=== PATIENT | female | born 1960 | race Caucasian/White ===

== ENCOUNTER 2017-10-17 06:28 | Inpatient (IN) | payer MEDICAID ==
[2017-10-17] MEDS ORDERED: Isosulfan Blue 5 ML SDV ONE (06:58)
[2017-10-17] MEDS ORDERED: Ondansetron 4 MG/2 ML SDV ONE (07:12)
[2017-10-17] MEDS ORDERED: Propofol 200 MG/20 ML SDV ONE (07:12)
[2017-10-17] MEDS ORDERED: Rocuronium 50 MG/5 ML Vial ONE (07:12)
[2017-10-17] MEDS ORDERED: Dexamethasone 4 MG/ML SDV ONE (07:12)
[2017-10-17] MEDS ORDERED: Neostigmine Methylsulfate 1 MG/ML 5 ML Syringe ONE (07:13)
[2017-10-17] MEDS ORDERED: Succinylcholine/Normal Saline 200 MG/10 ML Syringe ONE (07:13)
[2017-10-17] MEDS: Dextrose 5%-Lactated Ringers 1,000 ML IV SCH ×3 (07:21→21:59)
[2017-10-17] MEDS ORDERED: Naloxone 0.4 MG/ML SDV IVPUSH PRN ×2 (08:29→13:00)
[2017-10-17] MEDS ORDERED: HYDROmorphone/Normal Saline 15 MG/30 ML PCA IV PRN (08:29)
[2017-10-17] MEDS ORDERED: Isosulfan Blue 5 ML SDV SUBCUT ONE (08:29)
[2017-10-17] MEDS ORDERED: Ondansetron 4 MG/2 ML SDV IVPUSH PRN ×2 (10:28→11:32)
[2017-10-17] MEDS ORDERED: Docusate Sodium 100 MG Cap PO PRN (10:28)
[2017-10-17] MEDS ORDERED: Lactated Ringers 1,000 ML IV SCH ×2 (10:30→11:45)
--- NOTE | 2017-10-17 11:17 | NM ---
Lymphoscintigraphy. Findings: 1.47 mCi technetium was injected by Dr. Agudelo. Please refer to his procedural notes.
[2017-10-17] MEDS: Docusate Sodium 100 MG Cap PO PRN (20:13)
[2017-10-18] MEDS: Docusate Sodium 100 MG Cap PO PRN (08:57)
[2017-10-18] MEDS: Docusate Sodium 100 MG Cap PO SCH ×2 (08:58→20:01)
[2017-10-18] MEDS: Acetaminophen/HYDROcodone 325-5 MG Tab PO PRN ×3 (08:58→19:08)
[2017-10-18] MEDS ORDERED: Metoprolol Tartrate 25 MG Tab PO SCH (09:00)
--- NOTE | 2017-10-18 10:26 | PCM.SURGPN ---
- General Info Date of Service: 10/18/17 Date of Surgery/Procedure: 10/17/17 POD#: 1 Post-Op Diagnosis: Ductal carcinoma in situ, right breast Functional Status: Reports: Pain Controlled, Tolerating Diet, Ambulating, Urinating, Incentive Spirometry - Review of Systems General: Reports: No Symptoms HEENT: Reports: No Symptoms Pulmonary: Reports: No Symptoms Cardiovascular: Reports: No Symptoms Gastrointestinal: Reports: No Symptoms Genitourinary: Reports: No Symptoms Musculoskeletal: Reports: No Symptoms Skin: Reports: No Symptoms Neurological: Reports: No Symptoms Psychiatric: Reports: No Symptoms - Patient Data Vitals - Most Recent: Last Vital Signs Temp 97.1 F 10/18/17 07:11 Pulse 88 10/18/17 07:11 Resp 16 10/18/17 07:11 BP 101/53 L 10/18/17 07:11 Pulse Ox 95 10/18/17 07:30 Weight - Most Recent: 220 lb I&O - Last 24 Hours: Intake & Output 10/17/17 10/18/17 10/18/17 22:59 06:59 14:59 Intake Total 911 2073 240 Output Total 135 945 Balance 776 1128 240 Lab Results Last 24 Hrs: Laboratory Results - last 24 hr 10/18/17 10/18/17 Range/Units 05:45 05:45 WBC 11.5 H (4.5-11.0) K/uL RBC 4.19 (3.30-5.50) M/uL Hgb 10.9 L D (12.0-15.0) g/dL Hct 35.5 L (36.0-48.0) % MCV 85 (80-98) fL MCH 26 L (27-31) pg MCHC 31 L (32-36) % Plt Count 612 H (150-400) K/uL Sodium 140 (140-148) mmol/L Potassium 4.5 (3.6-5.2) mmol/L Chloride 104 (100-108) mmol/L Carbon Dioxide 28 (21-32) mmol/L Anion Gap 8.1 (5.0-14.0) mmol/L BUN 13 (7-18) mg/dL Creatinine 0.7 (0.6-1.0) mg/dL Est Cr Clr Drug Dosing 74.96 mL/min Estimated GFR (MDRD) > 60 (>60) Glucose 157 H (74-106) mg/dL Calcium 9.1 (8.5-10.1) mg/dL Med Orders - Current: Current Medications Hydrocodone Bitart/Acetaminophen ([place] 325-5 Mg) 1 - 2 tab PO Q4H PRN PRN Reason: Pain Last Admin: 10/18/17 08:58 Dose: 2 tab Docusate Sodium (Colace) 100 mg PO BID PRN PRN Reason: Constipation Last Admin: 10/18/17 08:57 Dose: 100 mg Docusate Sodium (Colace) 100 mg PO BID NATALI Last Admin: 10/18/17 08:58 Dose: Not Given Hydromorphone HCl (Dilaudid Supervisor Coffee 15 Mg In Ns 30 Ml) 0 mg IV ASDIRECTED PRN; Protocol PRN Reason: Pain Last Admin: 10/17/17 08:49 Dose: 0.3 mg Dextrose/Lactated Ringer's (Dextrose 5%-Lactated Ringers) 1,000 mls @ 100 mls/ hr IV ASDIRECTED [facility] Last Admin: 10/17/17 21:59 Dose: 100 mls/hr Lactated Ringer's (Ringers, Lactated) 1,000 mls @ 125 mls/hr IV ASDIRECTED [facility] Lisinopril (Prinivil) 20 mg PO DAILY [facility] Metoprolol Tartrate (Lopressor) 25 mg PO DAILY [facility] Naloxone HCl (Narcan) 0.1 mg IVPUSH Q5M PRN PRN Reason: Respiratory Distress Ondansetron HCl (Zofran) 4 mg IVPUSH Q6H PRN PRN Reason: Nausea/Vomiting Discontinued Medications Dexamethasone (Dexamethasone) Confirm Administered Dose 4 mg .ROUTE .STK-MED ONE Stop: 10/17/17 07:13 Docusate Sodium (Colace) 100 mg PO BID PRN PRN Reason: Constipation Fentanyl Citrate (Fentanyl) Confirm Administered Dose 500 mcg .ROUTE .STK-MED ONE Stop: 10/17/17 07:13 Glycopyrrolate () Confirm Administered Dose 1 mg .ROUTE .STK-MED ONE Stop: 10/17/17 07:14 Lactated Ringer's (Ringers, Lactated) 1,000 mls @ 125 mls/hr IV ASDIRECTED [facility] Isosulfan Blue (Lymphazurin 1%) Confirm Administered Dose 5 ml .ROUTE .STK-MED ONE Stop: 10/17/17 06:59 Isosulfan Blue (Lymphazurin 1%) 10 ml SUBCUT .STK-MED ONE Stop: 10/17/17 08:30 Last Admin: 10/17/17 08:29 Dose: 10 ml Metoprolol Tartrate (Lopressor) 25 mg PO DAILY [facility]ALI Naloxone HCl (Narcan) 0.4 mg IVPUSH Q2M PRN PRN Reason: Respiratory Distress Neostigmine Methylsulfate (Neostigmine) Confirm Administered Dose 5 mg .ROUTE .STK-MED ONE Stop: 10/17/17 07:14 Ondansetron HCl (Zofran) Confirm Administered Dose 4 mg .ROUTE .STK-MED ONE Stop: 10/17/17 07:13 Ondansetron HCl (Zofran) 4 mg IVPUSH Q6H PRN PRN Reason: Nausea/Vomiting Propofol (Diprivan 20 Ml) Confirm Administered Dose 200 mg .ROUTE .STK-MED ONE Stop: 10/17/17 07:13 Rocuronium [place] (Zemuron) Confirm Administered Dose 50 mg .ROUTE .STK-MED ONE Stop: 10/17/17 07:13 Succinylcholine Chloride (Succinylcholine In Ns Pf) Confirm Administered Dose 200 mg .ROUTE .STK-MED ONE Stop: 10/17/17 07:14 - Exam Wound/Incisions: Dressing Dry and Intact, No Drainage (ED output 80 and 40 ml's per 24 hours. ) Quality Assessment: DVT Prophylaxis General: Alert, Oriented, Cooperative, No Acute Distress Lungs: Clear to Auscultation, Normal Respiratory Effort Cardiovascular: Regular Rate, Regular Rhythm GI/Abdominal Exam: Normal Bowel Sounds Skin: Warm, Dry, Intact Neurological: No New Focal Deficit Psy/Mental Status: Alert, Normal Affect, Normal Mood - Problem List Review Problem List Initiated/Reviewed/Updated: Yes - My Orders Last 24 Hours: Active Orders 24 hr Category Date Time Status Patient Status [ADT] Routine ADT 10/17/17 10:28 Active Ambulate [RC] ASDIRECTED Care 10/17/17 10:28 Active Ambulate [RC] PER UNIT ROUTINE Care 10/17/17 10:28 Active Antiembolic Devices [RC] .Routine Care 10/17/17 10:31 Active Drain Management [RC] QSHIFT Care 10/17/17 10:30 Active Intake and Output [RC] Q4HR Care 10/17/17 10:29 Active Notify Provider Vital Signs [RC] PRN Care 10/17/17 10:30 Active Oxygen Therapy [RC] PRN Care 10/17/17 10:28 Active RT Incentive Spirometry [RC] ASDIRECTED Care 10/17/17 10:28 Active Up With Assistance [RC] ASDIRECTED Care 10/17/17 10:28 Active Up to Chair [RC] ASDIRECTED Care 10/17/17 10:28 Active VTE/DVT Education [RC] Click to Edit Care 10/17/17 10:31 Active Vital Signs [RC] Q4H Care 10/17/17 10:28 Active Respiratory Care Assess and Treatment [CONS] Routine Cons 10/17/17 10:28 Active Advance Diet Instructions [DIET] Diet 10/17/17 Lunch Active Acetaminophen/HYDROcodone [[place] 325-5 MG] Med 10/18/17 08:24 Active 1 - 2 tab PO Q4H PRN Docusate Sodium [Colace] Med 10/18/17 09:00 Active 100 mg PO BID Docusate Sodium [Colace] Med 10/17/17 11:32 Active 100 mg PO BID PRN Lactated Ringers [Ringers, Lactated] 1,000 ml Med 10/17/17 11:45 Active IV ASDIRECTED Lisinopril [Prinivil] Med 10/18/17 09:00 Active 20 mg PO DAILY Metoprolol Tartrate [Lopressor] Med 10/18/17 09:00 Active 25 mg PO DAILY Naloxone [Narcan] Med 10/17/17 13:00 Active 0.1 mg IVPUSH Q5M PRN Ondansetron [Zofran] Med 10/17/17 11:32 Active 4 mg IVPUSH Q6H PRN DVT/VTE Prophylaxis Reflex [OM.PC] Per Unit Routine Oth 10/17/17 10:31 Ordered Resuscitation Status Routine Resus Stat 10/17/17 10:28 Ordered Medication Orders Hydrocodone Bitart/Acetaminophen ([place] 325-5 Mg) 1 - 2 tab PO Q4H PRN PRN Reason: Pain Last Admin: 10/18/17 08:58 Dose: 2 tab Docusate Sodium (Colace) 100 mg PO BID PRN PRN Reason: Constipation Last Admin: 10/18/17 08:57 Dose: 100 mg Admin: 10/17/17 20:13 Dose: 100 mg Docusate Sodium (Colace) 100 mg PO BID NATALI Last Admin: 10/18/17 08:58 Dose: Hydromorphone HCl (Dilaudid Supervisor Coffee 15 Mg In Ns 30 Ml) 0 mg IV ASDIRECTED PRN; Protocol PRN Reason: Pain Last Admin: 10/17/17 08:49 Dose: 0.3 mg Dextrose/Lactated Ringer's (Dextrose 5%-Lactated Ringers) 1,000 mls @ 100 mls/ hr IV ASDIRECTED NATALI Last Admin: 10/17/17 21:59 Dose: 100 mls/hr Infusion: 10/17/17 21:59 Dose: 100 mls/hr Admin: 10/17/17 12:00 Dose: 100 mls/hr Infusion: 10/17/17 12:00 Dose: 100 mls/hr Admin: 10/17/17 07:21 Dose: 100 mls/hr Lactated Ringer's (Ringers, Lactated) 1,000 mls @ 125 mls/hr IV ASDIRECTED NATALI Lisinopril (Prinivil) 20 mg PO DAILY [facility] Metoprolol Tartrate (Lopressor) 25 mg PO DAILY [facility] Naloxone HCl (Narcan) 0.1 mg IVPUSH Q5M PRN PRN Reason: Respiratory Distress Ondansetron HCl (Zofran) 4 mg IVPUSH Q6H PRN PRN Reason: Nausea/Vomiting - Assessment Assessment (Free Text/Narrative):: Doing well. - Plan Plan (Free Text/Narrative):: Teach care of her ED's. Oral pain medication. Possibly home later today.
[2017-10-18] MEDS: Lisinopril 20 MG Tab PO SCH (10:29)
[2017-10-18] MEDS: Metoprolol Tartrate 25 MG Tab PO SCH (10:30)
[2017-10-18] MEDS: Enoxaparin 30 MG/0.3 ML Syringe SUBCUT SCH (12:59)
--- NOTE | 2017-10-18 19:12 | OR ---
DATE OF PROCEDURE: 10/17/2017 PREOPERATIVE DIAGNOSIS: Ductal carcinoma in situ right breast. POSTOPERATIVE DIAGNOSES: Ductal carcinoma in situ right breast with negative sentinel node biopsy. PROCEDURE: Right mastectomy with sentinel node biopsy. COMMISSARY OFFICER: Joaquin Durant MS-3. ANESTHESIA: General endotracheal. INDICATION: This is a 57-year-old white female, who underwent a core biopsy on her right breast, which returned ductal carcinoma in situ. She is admitted for a right mastectomy with sentinel node biopsy. Although, it is most likely she does not have an invasive component. The sentinel node is done because of the possibility of invasive ductal carcinoma. I counseled her for surgery including risks and alternatives, and she gave her informed consent to proceed. Liver profile, chest x-ray unremarkable. DESCRIPTION OF PROCEDURE: While she was still in the outpatient area, radionucleotide was injected about the areolar complex on the right side. She underwent scan which showed radioactive material in the axilla consistent with sentinel node. She was then taken to the operating room, and placed supine on the operating room table. General endotracheal anesthesia was obtained. Her anterior chest, flank, axilla, and arm to the shoulder were prepped and draped in usual sterile fashion. Time-out was held. A marking pen was used to irene the planned incision, which is a transverse ellipse including the biopsy site and the areolar complex. This went from the lateral edge of the sternum to the area of the latissimus dorsi. Isosulfan blue was then injected about the areolar complex. The lower skin flap was then developed to the costal margin by elevating the skin flap and going to the avascular plane using curved Oro scissors. Hemostasis was noted. The upper skin flap was then made. This was done by making the incision and then elevating the flap while going through the avascular plane up to the clavicle. The breast was then grasped medially and dissected free from the underlying pectoralis muscle using Bovie cautery. The fascia was included with the specimen. At the lateral edge of the pectoralis muscles, the clavipectoral fascia was identified. We used the Neoprobe to identify the sentinel node. We saw a couple of these which were removed. It was noted that blue dye was going into them. It was sent to Pathology where frozen section showed it to be free of macroscopic tumor. The breast was then divided from the chest wall at the area of the latissimus dorsi and delivered from the field. It was marked with the tail ailin Jeong, could be identified by pathology. The incision was irrigated with sterile water and suctioned dry. Two Gautam- Lechuga drains were obtained and brought out through separate stab wounds inferiorly. It appeared that she would have a "dog ear" at the lateral aspect of incision, so we excised two triangles of tissue turning the lateral portion of the incision into a Y. The medial drain was placed up under the upper flap and the lateral drain was placed in the axilla. The subcutaneous tissue was closed with interrupted stitches of 2-0 Vicryl. Skin dhara were placed to approximate the skin. The drains were anchored with 2-0 silk suture. A sterile dressing was applied. The anesthesia was reversed. She was extubated and brought to recovery room in good condition. Bo Peters MD /[id number]
[2017-10-19] MEDS: Acetaminophen/HYDROcodone 325-5 MG Tab PO PRN ×3 (02:33→13:09)
[2017-10-19] MEDS: Lisinopril 20 MG Tab PO SCH (08:39)
[2017-10-19] MEDS: Docusate Sodium 100 MG Cap PO SCH (08:39)
[2017-10-19] MEDS: Metoprolol Tartrate 25 MG Tab PO SCH (08:41)
[2017-10-19] MEDS: Enoxaparin 30 MG/0.3 ML Syringe SUBCUT SCH (11:32)
[2017-10-19 11:38] VITALS: BP 93/56
--- NOTE | 2017-10-19 11:48 | PCM.DCSUM1 ---
Discharge Summary - Hospital Course Free Text/Narrative:: This 57 year old white female was admitted on October 17, 2017 for a right mastectomy with sentinel node biopsy. She had a core biopsy which showed ductal carcinoma in situ. No evidence of distal disease. We did the sentinel node biopsy in the oft chance she could have an invasive component. It was negative for macro metastases. Two ED drains were left in place. She was not ready to go home yesterday, today she is. One of her ED's put out 20 ml's over the past 24 hours so it was removed. She is discharged at this time in good condition. Final pathology is pending. - Discharge Data Discharge Date: 10/19/17 Discharge Disposition: Home, Self-Care 01 Condition: Good - Discharge Diagnosis/Problem(s) (1) Breast cancer SNOMED Code(s): 047436692 ICD Code: C50.919 - MALIGNANT NEOPLASM OF UNSP SITE OF UNSPECIFIED FEMALE BREAST Status: Acute Priority: High Current Visit: Yes Qualifiers: Breast location: upper inner quadrant of breast Estrogen receptor status: unspecified Patient sex: female Laterality: right Qualified Code(s): C50.211 - Malignant neoplasm of upper-inner quadrant of right female breast - Patient Summary/Data Operative Procedure(s) Performed: Right mastectomy and sentinel node biopsy. Consults: Consultations 10/17/17 10:28 Respiratory Care Assess and Treatment [CONS] Routine Comment: Physician Instructions: Hospital Course: See above narrative. - Patient Instructions Diet: Usual Diet as Tolerated Activity: As Tolerated (Do not abduct her right arm. ) Showering/Bathing: May Shower Notify Provider of: Fever, Increased Pain, Swelling and Redness, Drainage, Nausea and/or Vomiting - Discharge Plan Prescriptions/Med Rec: Hydrocodone/Acetaminophen [Hydrocodon-Acetaminophen 5-325] 1 - 2 each PO Q4H PRN #30 tablet PRN Reason: Pain Home Medications: Home Meds Lisinopril 20 mg PO DAILY 10/14/16 [History] Metoprolol Tartrate 25 mg PO DAILY 10/14/16 [History] Calcium Carbonate/Vitamin D3 [Calcium 600 + Vit D 200] 1 tab PO DAILY 10/15/17 [ History] Flaxseed Oil [Flax Oil] 1,000 mg PO 10/15/17 [History] Multivitamin [Multivitamins] 1 cap PO DAILY 10/15/17 [History] Bradford-3S/DHA/Epa/Fish Oil/D3 [Bradford-3 + D Softgel] 1 cap PO DAILY 10/15/17 [ History] Vit A/Beta-Carot/D2/E/Selenium [Vitamins A-D-E] 1 tab PO DAILY 10/15/17 [History ] Hydrocodone/Acetaminophen [Hydrocodon-Acetaminophen 5-325] 1 - 2 each PO Q4H PRN #30 tablet 10/19/17 [Rx] Referrals: Bo Peters MD [Physician] - (See me in [place] this Saturday for staple removal and in [facility] when her ED output goes to 30 ml's per day or less. ) - Discharge Summary/Plan Comment DC Time >30 min.: Yes - Patient Data Vitals - Most Recent: Last Vital Signs Temp 96.5 F 10/19/17 11:36 Pulse 82 10/19/17 11:36 Resp 16 10/19/17 11:36 BP 93/56 L 10/19/17 11:36 Pulse Ox 99 10/19/17 11:36 Weight - Most Recent: 220 lb I&O - Last 24 hours: Intake & Output 10/18/17 10/19/17 10/19/17 22:59 06:59 14:59 Intake Total 740 200 760 Output Total 590 735 150 Balance 150 -535 610 Med Orders - Current: Current Medications Hydrocodone Bitart/Acetaminophen ([place] 325-5 Mg) 1 - 2 tab PO Q4H PRN PRN Reason: Pain Last Admin: 10/19/17 08:43 Dose: 2 tab Docusate Sodium (Colace) 100 mg PO BID PRN PRN Reason: Constipation Last Admin: 10/18/17 08:57 Dose: 100 mg Docusate Sodium (Colace) 100 mg PO BID NATALI Last Admin: 10/19/17 08:39 Dose: 100 mg Enoxaparin Sodium (Lovenox) 30 mg SUBCUT Q24H NATALI Last Admin: 10/19/17 11:32 Dose: 30 mg Hydromorphone HCl (Dilaudid Medical Surgical Tech 15 Mg In Ns 30 Ml) 0 mg IV ASDIRECTED PRN; Protocol PRN Reason: Pain Last Admin: 10/17/17 08:49 Dose: 0.3 mg Lisinopril (Prinivil) 20 mg PO DAILY [facility] Last Admin: 10/19/17 08:39 Dose: 20 mg Metoprolol Tartrate (Lopressor) 25 mg PO DAILY [facility] Last Admin: 10/19/17 08:41 Dose: 25 mg Naloxone HCl (Narcan) 0.1 mg IVPUSH Q5M PRN PRN Reason: Respiratory Distress Ondansetron HCl (Zofran) 4 mg IVPUSH Q6H PRN PRN Reason: Nausea/Vomiting Discontinued Medications Dexamethasone (Dexamethasone) Confirm Administered Dose 4 mg .ROUTE .STK-MED ONE Stop: 10/17/17 07:13 Docusate Sodium (Colace) 100 mg PO BID PRN PRN Reason: Constipation Fentanyl Citrate (Fentanyl) Confirm Administered Dose 500 mcg .ROUTE .STK-MED ONE Stop: 10/17/17 07:13 Glycopyrrolate () Confirm Administered Dose 1 mg .ROUTE .STK-MED ONE Stop: 10/17/17 07:14 Dextrose/Lactated Ringer's (Dextrose 5%-Lactated Ringers) 1,000 mls @ 100 mls/ hr IV ASDIRECTED [facility] Last Admin: 10/17/17 21:59 Dose: 100 mls/hr Lactated Ringer's (Ringers, Lactated) 1,000 mls @ 125 mls/hr IV ASDIRECTED [facility] Lactated Ringer's (Ringers, Lactated) 1,000 mls @ 125 mls/hr IV ASDIRECTED [facility] Isosulfan Blue (Lymphazurin 1%) Confirm Administered Dose 5 ml .ROUTE .STK-MED ONE Stop: 10/17/17 06:59 Isosulfan Blue (Lymphazurin 1%) 10 ml SUBCUT .STK-MED ONE Stop: 10/17/17 08:30 Last Admin: 10/17/17 08:29 Dose: 10 ml Metoprolol Tartrate (Lopressor) 25 mg PO DAILY [facility] Naloxone HCl (Narcan) 0.4 mg IVPUSH Q2M PRN PRN Reason: Respiratory Distress Neostigmine Methylsulfate (Neostigmine) Confirm Administered Dose 5 mg .ROUTE .STK-MED ONE Stop: 10/17/17 07:14 Ondansetron HCl (Zofran) Confirm Administered Dose 4 mg .ROUTE .STK-MED ONE Stop: 10/17/17 07:13 Ondansetron HCl (Zofran) 4 mg IVPUSH Q6H PRN PRN Reason: Nausea/Vomiting Propofol (Diprivan 20 Ml) Confirm Administered Dose 200 mg .ROUTE .STK-MED ONE Stop: 10/17/17 07:13 Rocuronium Bode (Zemuron) Confirm Administered Dose 50 mg .ROUTE .STK-MED ONE Stop: 10/17/17 07:13 Succinylcholine Chloride (Succinylcholine In Ns Pf) Confirm Administered Dose 200 mg .ROUTE .STK-MED ONE Stop: 10/17/17 07:14 *Q Meaningful Use (DIS) - VTE *Q VTE Criteria *Q: - Stroke *Q Stroke Criteria *Q: - AMI *Q AMI Criteria *Q:
== END 2017-10-19 14:15 | disposition home or self-care (01) | DRG 581 ==
LOC: JP.SDS 06:28 → JP.MS 06:28 → EDSTATUS 08:00 → JP.MS 10:15
PROVIDERS: ADMIT Surgery; ATTEND Surgery
PROC: 0HTT0ZZ Resection of Right Breast, Open Approach (ICD-10-PCS; principal; 2017-10-17)
PROC: 07B50ZX Excision of Right Axillary Lymphatic, Open Approach, Diagnostic (ICD-10-PCS; 2017-10-17)
DX: D05.11 Intraductal carcinoma in situ of right breast (principal); I10 Essential (primary) hypertension; Z80.3 Family history of malignant neoplasm of breast; Z96.643 Presence of artificial hip joint, bilateral; Z79.82 Long term (current) use of aspirin; Z88.2 Allergy status to sulfonamides; Z17.0 Estrogen receptor positive status [ER+]
CPT/HCPCS: 36415; 78195; 78195-26; 80048; 85027; 88307; 88331; 88341; 88342; 94762; A9270-GY; A9541; J1100; J1170; J1650; J2405; J2704; J3010; J7042; Q9968

== ENCOUNTER 2017-11-02 19:50 | Inpatient (IN) | payer MEDICAID ==
--- NOTE | 2017-11-02 20:49 | EDM.PDOC ---
ED HPI GENERAL MEDICAL PROBLEM - General Chief Complaint: General Stated Complaint: RIGHT BREAST REMOVED 2 WKS AGO, SWELLING Time Seen by Provider: 11/02/17 20:21 Source of Information: Reports: Patient, Family, RN Notes Reviewed History Limitations: Reports: No Limitations - History of Present Illness INITIAL COMMENTS - FREE TEXT/NARRATIVE: 57-year-old female presents emergency department today with development of redness and swelling over her surgical wound, she is postop approximately 2 weeks from right mastectomy she states the wound is been doing good had good surgical follow-up however over the last 24 hours she developed redness the wound has split open slightly with a small amount of drainage she's also had some increased swelling in that area she denies any fever shortness of breath or chest pain right breast Pain Score (Numeric/FACES): 2 - Related Data Allergies Allergy/AdvReac Type Severity Reaction Status Date / Time Sulfa (Sulfonamide Allergy Rash Verified 11/02/17 20:17 Antibiotics) Home Meds: Home Meds Lisinopril 20 mg PO DAILY 10/14/16 [History] Metoprolol Tartrate 25 mg PO DAILY 10/14/16 [History] Calcium Carbonate/Vitamin D3 [Calcium 600 + Vit D 200] 1 tab PO DAILY 10/15/17 [ History] Flaxseed Oil [Flax Oil] 1,000 mg PO 10/15/17 [History] Multivitamin [Multivitamins] 1 cap PO DAILY 10/15/17 [History] [place]-3S/DHA/Epa/Fish Oil/D3 [[place]-3 + D Softgel] 1 cap PO DAILY 10/15/17 [ History] Vit A/Beta-Carot/D2/E/Selenium [Vitamins A-D-E] 1 tab PO DAILY 10/15/17 [History ] Hydrocodone/Acetaminophen [Hydrocodon-Acetaminophen 5-325] 1 - 2 each PO Q4H PRN #30 tablet 10/19/17 [Rx] Past Medical History HEENT History: Reports: Impaired Vision Other HEENT History: wears glasses Cardiovascular History: Reports: Hypertension Gastrointestinal History: Reports: Hemorrhoids DOCUMENTATION SPECIALIST History: Reports: Musculoskeletal History: Reports: Gout, Osteoarthritis Endocrine/Metabolic History: Reports: Obesity/BMI 30+ Oncologic (Cancer) History: Reports: Breast - Infectious Disease History Infectious Disease History: Reports: Chicken Pox - Past Surgical History HEENT Surgical History: Reports: None Cardiovascular Surgical History: Reports: None GI Surgical History: Reports: Colonoscopy Female Surgical History: Reports: Breast Biopsy, Mastectomy, Other (See Below ) Other Female Surgeries/Procedures: Right mastecomy Endocrine Surgical History: Reports: None Musculoskeletal Surgical History: Reports: Hip Replacement Oncologic Surgical History: Reports: Biopsy of Breast Social & Family History - Tobacco Use Smoking Status *Q: Never Smoker Second Hand Smoke Exposure: No - Caffeine Use Caffeine Use: Reports: Soda - Alcohol Use Days Per Week of Alcohol Use: 2 Number of Drinks Per Day: 4 Total Drinks Per Week: 8 - Recreational Drug Use Recreational Drug Use: No ED ROS GENERAL - Review of Systems Review Of Systems: See Below Constitutional: Denies: Fever, Chills HEENT: Reports: No Symptoms Respiratory: Reports: No Symptoms Cardiovascular: Reports: No Symptoms GI/Abdominal: Reports: No Symptoms : Reports: No Symptoms Musculoskeletal: Reports: No Symptoms Skin: Reports: Pallor, Erythema, Wound, Change in Color, Other (Drainage) Neurological: Reports: No Symptoms ED EXAM, GENERAL - Physical Exam Exam: See Below Free Text/Narrative:: Examination of the wound reveals erythema approximately 4 cm outside the surgical site the surgical wound has opened about a centimeter there is a scant amount of thick purulent drainage present it is warm to the touch tender to the touch she does complaint of some edema over the surgical site Exam Limited By: No Limitations General Appearance: Alert, WD/WN, No Apparent Distress Respiratory/Chest: No Respiratory Distress, Lungs Clear, Normal Breath Sounds, No Accessory Muscle Use Cardiovascular: Regular Rate, Rhythm, No Murmur Course - Vital Signs Last Recorded V/S: Last Vital Signs Temp 99.2 F 11/02/17 20:35 Pulse 112 H 11/02/17 20:35 Resp 16 11/02/17 20:35 BP 152/84 H 11/02/17 20:35 Pulse Ox 97 11/02/17 20:35 - Orders/Labs/Meds Orders: Active Orders 24 hr Category Date Time Status Vital Signs [RC] Q1H Care 11/02/17 20:41 Active CULTURE BLOOD [BC] Urgent Lab 11/02/17 20:45 Received CULTURE BLOOD [BC] Urgent Lab 11/02/17 20:55 Received Blood Culture x2 Reflex Set [OM.PC] Urgent Oth 11/02/17 20:41 Ordered Labs: Laboratory Tests 11/02/17 11/02/17 11/02/17 Range/Units 20:45 20:45 20:45 WBC 6.7 (4.5-11.0) K/uL RBC 4.36 (3.30-5.50) M/uL Hgb 11.3 L (12.0-15.0) g/dL Hct 35.6 L (36.0-48.0) % MCV 82 (80-98) fL MCH 26 L (27-31) pg MCHC 32 (32-36) % Plt Count 501 H (150-400) K/uL Neut % (Auto) 65 (36-66) % Lymph % (Auto) 24 (24-44) % Pepin % (Auto) 6 (2-6) % Eos % (Auto) 5 H (2-4) % Baso % (Auto) 0 (0-1) % Sodium 138 L (140-148) mmol/L Potassium 4.1 (3.6-5.2) mmol/L Chloride 101 (100-108) mmol/L Carbon Dioxide 30 (21-32) mmol/L Anion Gap 11.1 (5.0-14.0) mmol/L BUN 14 (7-18) mg/dL Creatinine 0.9 (0.6-1.0) mg/dL Est Cr Clr Drug Dosing 58.30 mL/min Estimated GFR (MDRD) > 60 (>60) Glucose 132 H (74-106) mg/dL Lactic Acid 2.0 (0.4-2.0) mmol/L Calcium 9.2 (8.5-10.1) mg/dL Total Bilirubin 0.2 D (0.2-1.0) mg/dL AST 13 L (15-37) U/L ALT 21 (12-78) U/L Alkaline Phosphatase 100 (46-116) U/L C-Reactive Protein 5.03 H (0.0-0.3) mg/dL Total Protein 8.0 (6.4-8.2) g/dL Albumin 3.0 L (3.4-5.0) g/dL Globulin 5.0 H (2.3-3.5) g/dL Albumin/Globulin Ratio 0.6 L (1.2-2.2) Departure - Departure Time of Disposition: 21:49 Disposition: Admitted As Inpatient 66 Condition: Fair Clinical Impression: Cellulitis of chest wall - Discharge Information Referrals: Valdemar Galarza MD [Primary Care Provider] - Forms: ED Department Discharge - My Orders Last 24 Hours: My Active Orders 11/02/17 20:41 Vital Signs [RC] Q1H Blood Culture x2 Reflex Set [OM.PC] Urgent 11/02/17 20:45 CULTURE BLOOD [BC] Urgent 11/02/17 20:55 CULTURE BLOOD [BC] Urgent - Assessment/Plan Last 24 Hours: My Active Orders 11/02/17 20:41 Vital Signs [RC] Q1H Blood Culture x2 Reflex Set [OM.PC] Urgent 11/02/17 20:45 CULTURE BLOOD [BC] Urgent 11/02/17 20:55 CULTURE BLOOD [BC] Urgent Plan: Assessment Acuity = acute Site and laterality = cellulitis concern for underlying abscess, again the patient with recent mastectomy postop day 2 weeks Etiology = probable bacterial cause Manifestations = none Location of injury = Home Lab values = hemoglobin low at 11.3 consistent normochromic anemia, platelets elevated at 501 consistent with thrombocytosis CRP elevated at 5.03 of unclear significance lactic acid normal at 2.0 albumin low at 2.0 consistent hypoalbuminemia Plan called and discussed the case with Dr. Yanez surgeon rn long term care he elected to come and evaluate the patient in the hospital therefore she'll be admitted Zosyn 4.5 mg every 8 hours will be initiated ultrasound in the morning and nothing by mouth at midnight This note was dictated using [employer] voice recognition software please call with any questions on syntax or onel.
[2017-11-02] MEDS: Sodium Chloride 0.9% 10 ML Syringe FLUSH PRN ×2 (22:18→23:24)
[2017-11-02] MEDS: Piperacillin/Tazobactam 4.5 GM in Sodium Chloride 0.9% 100 ML IV SCH (23:24)
[2017-11-02] MEDS ORDERED: Sodium Chloride 0.9% 1,000 ML IV SCH (23:45)
[2017-11-02] MEDS ORDERED: Ondansetron 4 MG/2 ML SDV IVPUSH PRN (23:50)
[2017-11-02] MEDS ORDERED: Scopolamine 1.5 MG Transdermal Patch TOP PRN (23:51)
[2017-11-02] MEDS ORDERED: Promethazine 25 MG/ML SDV IV PRN (23:54)
[2017-11-02] MEDS ORDERED: diphenhydrAMINE 50 MG/ML SDV IV PRN (23:55)
[2017-11-02] MEDS ORDERED: diphenhydrAMINE 25 MG Cap PO PRN (23:56)
[2017-11-03] MEDS ORDERED: Morphine 2 MG/ML Syringe IVPUSH PRN (01:11)
[2017-11-03] MEDS ORDERED: fentaNYL 100 MCG/2 ML SDV IVPUSH PRN (01:12)
[2017-11-03] MEDS: Piperacillin/Tazobactam 4.5 GM in Sodium Chloride 0.9% 100 ML IV SCH (03:53)
[2017-11-03] MEDS ORDERED: Nicotine 14 MG/24 Hr Patch TRDERM PRN (07:22)
[2017-11-03] MEDS: Calcium Carbonate/Vitamin D3 1500 MG-400 Units Tab PO SCH (08:24)
[2017-11-03] MEDS: CHECK SCOPOLAMINE PATCH DAILY SCH (08:24)
[2017-11-03] MEDS ORDERED: Bacitracin Oint 28.35 GM Tube TOP SCH (09:00)
--- NOTE | 2017-11-03 09:08 | PN ---
DATE OF SERVICE: 11/03/2017 SUBJECTIVE: The patient continues to improve today. Pain is well controlled. No nausea, vomiting, shortness of breath, or chest pain. OBJECTIVE: VITAL SIGNS: Stable. Temperature 98.1, blood pressure 111/66, pulse 93, respirations 18, 95% on room air. CARDIOVASCULAR: Regular rhythm and rate. RESPIRATORY: Clear. Lungs are clear to auscultation bilaterally. ABDOMEN: Bowel sounds positive. Incision is healing well. LABORATORY DATA: Laboratory results show hemoglobin stable. No white count. Normal basic metabolic panel. ASSESSMENT AND PLAN: Status post section. PLAN: The patient will be evaluated for discharge the next 24 hours. Please see discharge instructions for further details. Eben Yanez MD /[id number]
--- NOTE | 2017-11-03 10:14 | PN ---
DATE OF SERVICE: 11/03/2017 SUBJECTIVE: The patient is doing better today. Pain is still improving. No nausea, vomiting, shortness of breath, or chest pain. OBJECTIVE: VITAL SIGNS: Stable. CARDIOVASCULAR: Regular rhythm and rate. RESPIRATORY: Lungs are clear to consultation bilaterally. ABDOMEN: Bowel sounds are positive. Wound shows stability. Cellulitis is stable also. ASSESSMENT: Wound failure after mastectomy. PLAN: The ultrasound is still pending. This will be the linchpin for care. If there is a fluid collection, she will have to have this aspirated and/or drained. However, we will continue with local wound cares at this time and await ultrasound. Eben Yanez MD /[id number]
--- NOTE | 2017-11-03 10:41 | CONS ---
DATE OF SERVICE: 11/02/2017 REFERRING PHYSICIAN: CONSULTING PHYSICIAN: Eben Yanez MD TIME SEEN: 11:[address] Peters. HISTORY OF PRESENT ILLNESS: A 57-year-old female who underwent a right mastectomy with sentinel node biopsy on October 29, 2017. The patient did well. She had 2 Gautam-Lechuga drains placed at that time and followed up with Dr. Peters in the postoperative setting. This is approximately 2 weeks later and the patient has concerns for open wound and drainage. She does have swelling and pain, which is 2 to 3/10 and is constant at the incision/mastectomy site. 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 PAST SURGICAL HISTORY: Mastectomy as described and hip replacement. SOCIAL HISTORY: She does not smoke. FAMILY HISTORY: Noncontributory to her wound status. REVIEW OF SYSTEMS: GENERAL: The patient is appropriate for her condition. HEENT: Does wear glasses. CARDIOVASCULAR: No history of myocardial infarction. RESPIRATORY: No current shortness of breath. GASTROINTESTINAL: No concerns today. GENITOURINARY: No dysuria. NEUROLOGICAL: No symptoms. PSYCH: No gross depression. The remainder of review of systems was reviewed and is negative. PHYSICAL EXAMINATION: VITAL SIGNS: Temperature 98.1, blood pressure 111/66, pulse 93, respirations 18, 95% on room air. GENERAL: The patient is appropriate for her condition. HEENT: Pupils are equal. NECK: Supple. LUNGS: Clear. CARDIOVASCULAR: Regular rhythm and rate. ABDOMEN: Bowel sounds are positive. SKIN/BREAST: Shows cellulitis noted around the wound itself with an open wound with an eschar noted. [id number] drainage. EXTREMITIES: Full range of motion, strength 5/5. NEUROLOGICAL: Oriented x3. PSYCH: No gross depression. LABORATORY RESULTS: Show white blood cell count of 6.9, hemoglobin 10.7. Basic metabolic panel is normal. Imaging: Ultrasound is pending. ASSESSMENT AND PLAN: We will admit the patient overnight for observation to evaluate with ultrasound in the morning. In the meantime, we will start her on Zosyn antibiotics and repeat the white blood cell count in the morning. Eben Yanez MD /[id number]
[2017-11-03] MEDS: Bacitracin Oint 28.35 GM Tube TOP SCH (10:51)
[2017-11-03] MEDS: Piperacillin/Tazobactam/Dext 4.5 GM in Premix Bag 1 BAG IV SCH ×3 (11:00→21:29)
[2017-11-04] MEDS: Piperacillin/Tazobactam/Dext 4.5 GM in Premix Bag 1 BAG IV SCH ×4 (04:14→21:33)
[2017-11-04] MEDS: Calcium Carbonate/Vitamin D3 1500 MG-400 Units Tab PO SCH (08:29)
[2017-11-04] MEDS: Bacitracin Oint 28.35 GM Tube TOP SCH (08:29)
[2017-11-04] MEDS: CHECK SCOPOLAMINE PATCH DAILY SCH (08:30)
--- NOTE | 2017-11-04 10:02 | US ---
Breast Limited Rt INDICATION: cellulitis ? abscess COMPARISON: None FINDINGS: Ultrasound of the right chest/mastectomy site performed. Just superior to the incision is a 1.9 cm irregular fluid collection with surrounding hypoechoic edema. This is in area of redness and swelling. This would support clinical suspicion of abscess. This is amenable to ultrasound-guided dr james.
--- NOTE | 2017-11-04 16:36 | US ---
FNA w Image Guidance INDICATION: 1.9 cm fluid pocket in RT chest wall COMPARISON: Exam same day PROCEDURE: Ultrasound-guided aspiration of right anterior chest fluid collection procedure and risks discussed with patient agreed to proceed. Consent form signed. After show prep and local anesthesia a n 18-gauge needle was advanced into the previously demonstrated fluid collection in the anterior ches t wall deep to the incision. Total of 65 cc serosanguineous fluid then aspirated. Sample sent to the lab per referring providers orders. Patient tolerated the procedure well and left the department in s atisfactory condition. IMPRESSION: Ultrasound-guided aspiration of probable seroma right anterior chest wall deep to incisio n.
--- NOTE | 2017-11-04 17:23 | PCM.PN ---
- General Info Date of Service: 11/04/17 Admission Dx/Problem (Free Text): Cellulitis of chest wall Subjective Update: She feels fine. Says there is less swelling at her right mastectomy site. Functional Status: Reports: Pain Controlled, Tolerating Diet, Ambulating, Urinating - Review of Systems General: Reports: No Symptoms HEENT: Reports: No Symptoms Pulmonary: Reports: No Symptoms Cardiovascular: Reports: No Symptoms Gastrointestinal: Reports: No Symptoms Genitourinary: Reports: No Symptoms Musculoskeletal: Reports: No Symptoms Skin: Reports: Other (Less mastectomy swelling. ) Neurological: Reports: No Symptoms Psychiatric: Reports: No Symptoms - Patient Data Vitals - Most Recent: Last Vital Signs Temp 98.0 F 11/04/17 14:04 Pulse 89 11/04/17 14:04 Resp 18 11/04/17 14:04 BP 122/77 11/04/17 14:04 Pulse Ox 97 11/04/17 14:04 Weight - Most Recent: 214 lb 1.102 oz I&O - Last 24 Hours: Intake & Output 11/04/17 11/04/17 11/04/17 06:59 14:59 22:59 Intake Total 100 520 100 Output Total 400 1600 Balance -300 -1080 100 Robbie Results Last 24 Hours: Microbiology 11/04/17 15:04 Gram Stain - Final Thoracentesis Fluid - Right Med Orders - Current: Current Medications Bacitracin (Bacitracin Oint) 1 gm TOP DAILY [facility] Last Admin: 11/04/17 08:29 Dose: 1 applic Calcium Carbonate (Caltrate 600+D 1500 Mg-400 Units) 1 tab PO DAILY [facility] Last Admin: 11/04/17 08:29 Dose: 1 tab Diphenhydramine HCl (Benadryl) 25 - 50 mg IV Q4H PRN PRN Reason: ITCHING Diphenhydramine HCl (Benadryl) 25 - 50 mg PO Q4H PRN PRN Reason: ITCHING Fentanyl (Sublimaze) 10 - 30 mcg IVPUSH Q1H PRN PRN Reason: Pain (severe 7-10) Piperacillin/Tazobactam/ (Dextrose 4.5 gm/ Premix) 100 mls @ 200 mls/hr IV Q6H [facility] Last Admin: 11/04/17 15:38 Dose: 200 mls/hr Morphine Sulfate (Morphine) 1 - 3 mg IVPUSH Q1H PRN PRN Reason: Pain Nicotine (Habitrol) 14 mg TRDERM Q24H PRN PRN Reason: NICOTINE Check Scopolamine (Patch Daily) 1 each .XX DAILY [facility] Last Admin: 11/04/17 08:30 Dose: Not Given Ondansetron HCl (Zofran) 4 mg IVPUSH Q8H PRN PRN Reason: NAUSEA Promethazine HCl (Phenergan) 12.5 - 25 mg IV Q8H PRN PRN Reason: NAUSEA Scopolamine (Transderm-Scop) 1.5 mg TOP Q72H PRN PRN Reason: NAUSEA Sodium Chloride (Saline Flush) 10 ml FLUSH ASDIRECTED PRN PRN Reason: Keep Vein Open Last Admin: 11/02/17 23:24 Dose: 10 ml Discontinued Medications Bacitracin (Bacitracin Oint) 1 gm TOP TID NATALI Piperacillin Sod/Tazobactam (Sod 4.5 gm/ Sodium Chloride) 100 mls @ 200 mls/hr IV Q6H [facility] Last Admin: 11/03/17 03:53 Dose: 200 mls/hr Sodium Chloride (Normal Saline) 1,000 mls @ 125 mls/hr IV ASDIRECTED [facility] Last Admin: 11/03/17 02:03 Dose: 125 mls/hr - Exam General: Alert, Oriented, Cooperative, No Acute Distress Skin: Warm, Dry, Other (After obtaining informed consent, about 6 cm of her lateral mastectomy incision was sharply debrided to remove necrotic skin. ) Wound/Incisions: Other (See skin note. ) Neurological: No New Focal Deficit Psy/Mental Status: Alert, Normal Affect - Problem List & Annotations (1) Cellulitis of chest wall SNOMED Code(s): 68884145 Code(s): L03.313 - CELLULITIS OF CHEST WALL Status: Acute Current Visit: Yes - Problem List Review Problem List Initiated/Reviewed/Updated: Yes - Assessment Assessment:: Under ultrasound guidance, radiology drained 65 ml's of a seroma from her mastectomy site. Gram stain shows WBC's and gram positive cocci. - Plan Plan:: Continue antibiotics.
[2017-11-04] MEDS: Acetaminophen/HYDROcodone 325-5 MG Tab PO PRN (18:53)
[2017-11-04] MEDS: Docusate Sodium 100 MG Cap PO SCH (21:38)
[2017-11-05] MEDS: Piperacillin/Tazobactam/Dext 4.5 GM in Premix Bag 1 BAG IV SCH ×4 (04:00→22:10)
[2017-11-05] MEDS: Acetaminophen/HYDROcodone 325-5 MG Tab PO PRN (04:02)
--- NOTE | 2017-11-05 06:50 | PCM.PN ---
- General Info Date of Service: 11/05/17 Admission Dx/Problem (Free Text): Cellulitis of chest wall Subjective Update: She feels fine. Says there is less swelling at her right mastectomy site. Functional Status: Reports: Pain Controlled, Tolerating Diet, Ambulating, Urinating - Review of Systems General: Reports: No Symptoms HEENT: Reports: No Symptoms Pulmonary: Reports: No Symptoms Cardiovascular: Reports: No Symptoms Gastrointestinal: Reports: No Symptoms Genitourinary: Reports: No Symptoms Musculoskeletal: Reports: No Symptoms Skin: Reports: No Symptoms Neurological: Reports: No Symptoms Psychiatric: Reports: No Symptoms - Patient Data Vitals - Most Recent: Last Vital Signs Temp 97.2 F 11/05/17 04:00 Pulse 88 11/05/17 04:00 Resp 16 11/05/17 04:00 BP 126/78 11/05/17 04:00 Pulse Ox 94 L 11/05/17 04:00 Weight - Most Recent: 211 lb 3.2 oz I&O - Last 24 Hours: Intake & Output 11/04/17 11/04/17 11/05/17 14:59 22:59 06:59 Intake Total 520 800 300 Output Total 1600 400 800 Balance -1080 400 -500 Robbie Results Last 24 Hours: Microbiology 11/04/17 15:04 Gram Stain - Final Thoracentesis Fluid - Right Med Orders - Current: Current Medications Hydrocodone Bitart/Acetaminophen (Jackson 325-5 Mg) 1 - 2 tab PO Q4H PRN PRN Reason: Pain Last Admin: 11/05/17 04:02 Dose: 2 tab Bacitracin (Bacitracin Oint) 1 gm TOP DAILY [facility] Last Admin: 11/04/17 08:29 Dose: 1 applic Calcium Carbonate (Caltrate 600+D 1500 Mg-400 Units) 1 tab PO DAILY [facility] Last Admin: 11/04/17 08:29 Dose: 1 tab Diphenhydramine HCl (Benadryl) 25 - 50 mg IV Q4H PRN PRN Reason: ITCHING Diphenhydramine HCl (Benadryl) 25 - 50 mg PO Q4H PRN PRN Reason: ITCHING Docusate Sodium (Colace) 100 mg PO BID [facility] Last Admin: 11/04/17 21:38 Dose: 100 mg Fentanyl (Sublimaze) 10 - 30 mcg IVPUSH Q1H PRN PRN Reason: Pain (severe 7-10) Piperacillin/Tazobactam/ (Dextrose 4.5 gm/ Premix) 100 mls @ 200 mls/hr IV Q6H [facility] Last Admin: 11/05/17 04:00 Dose: 200 mls/hr Morphine Sulfate (Morphine) 1 - 3 mg IVPUSH Q1H PRN PRN Reason: Pain Nicotine (Habitrol) 14 mg TRDERM Q24H PRN PRN Reason: NICOTINE Check Scopolamine (Patch Daily) 1 each .XX DAILY [facility] Last Admin: 11/04/17 08:30 Dose: Not Given Ondansetron HCl (Zofran) 4 mg IVPUSH Q8H PRN PRN Reason: NAUSEA Promethazine HCl (Phenergan) 12.5 - 25 mg IV Q8H PRN PRN Reason: NAUSEA Scopolamine (Transderm-Scop) 1.5 mg TOP Q72H PRN PRN Reason: NAUSEA Sodium Chloride (Saline Flush) 10 ml FLUSH ASDIRECTED PRN PRN Reason: Keep Vein Open Last Admin: 11/02/17 23:24 Dose: 10 ml Discontinued Medications Bacitracin (Bacitracin Oint) 1 gm TOP TID [facility] Piperacillin Sod/Tazobactam (Sod 4.5 gm/ Sodium Chloride) 100 mls @ 200 mls/hr IV Q6H [facility] Last Admin: 11/03/17 03:53 Dose: 200 mls/hr Sodium Chloride (Normal Saline) 1,000 mls @ 125 mls/hr IV ASDIRECTED [facility] Last Admin: 11/03/17 02:03 Dose: 125 mls/hr - Exam General: Alert, Oriented, Cooperative, No Acute Distress Lungs: Clear to Auscultation, Normal Respiratory Effort Cardiovascular: Regular Rate, Regular Rhythm GI/Abdominal Exam: Normal Bowel Sounds, Soft Back Exam: Normal Inspection Extremities: Normal Inspection, Normal Range of Motion (Right upper extremity with good ROM. ) Skin: Warm, Dry, Other (Erythema a little better. ) Wound/Incisions: Dressing Dry and Intact Neurological: No New Focal Deficit Psy/Mental Status: Alert, Normal Affect, Normal Mood - Problem List & Annotations (1) Cellulitis of chest wall SNOMED Code(s): 63208079 Code(s): L03.313 - CELLULITIS OF CHEST WALL Status: Acute Current Visit: Yes - Problem List Review Problem List Initiated/Reviewed/Updated: Yes - My Orders Last 24 Hours: My Active Orders 11/04/17 18:30 Acetaminophen/HYDROcodone [Jackson 325-5 MG] 1 - 2 tab PO Q4H PRN 11/04/17 21:00 Docusate Sodium [Colace] 100 mg PO BID - Assessment Assessment:: Under ultrasound guidance, radiology drained 65 ml's of a seroma from her mastectomy site. Gram stain shows WBC's and gram positive cocci. Her erythema is improved. - Plan Plan:: Continue antibiotics. No change.
[2017-11-05] MEDS: Bacitracin Oint 28.35 GM Tube TOP SCH (08:34)
[2017-11-05] MEDS: CHECK SCOPOLAMINE PATCH DAILY SCH (08:35)
[2017-11-05] MEDS: Calcium Carbonate/Vitamin D3 1500 MG-400 Units Tab PO SCH (08:35)
[2017-11-05] MEDS: Docusate Sodium 100 MG Cap PO SCH ×3 (08:35→22:11)
[2017-11-05] MEDS: Metoprolol Tartrate 25 MG Tab PO SCH (10:37)
[2017-11-05] MEDS: Lisinopril 20 MG Tab PO SCH (10:38)
--- NOTE | 2017-11-05 19:16 | PN ---
DATE OF SERVICE: 11/05/2017 SUBJECTIVE: The patient is doing better today, both subjectively and objectively. No nausea, vomiting, shortness of breath, or chest pain. She has incisional pain that was rated as 1-2/10. OBJECTIVE: VITAL SIGNS: Stable. CARDIOVASCULAR: Regular rhythm and rate. RESPIRATORY: Lungs are clear to consultation bilaterally. The wound itself shows some necrotic slough noted. No signs of worsening cellulitis. ASSESSMENT: Wound cellulitis/abscess. PLAN: The patient will remain under the care of Dr. Peters. I will discuss with him and recommend formal surgical debridement of this wound. Awaiting for cultures and sensitivity. Discharge on p.o. antibiotics. The patient may see me as an outpatient. Eben Yanez MD /[id number]
[2017-11-06] MEDS: Sodium Chloride 0.9% 10 ML Syringe FLUSH PRN (04:28)
[2017-11-06] MEDS: Piperacillin/Tazobactam/Dext 4.5 GM in Premix Bag 1 BAG IV SCH ×2 (04:28→09:16)
[2017-11-06] MEDS: Docusate Sodium 100 MG Cap PO SCH (08:03)
[2017-11-06] MEDS: Calcium Carbonate/Vitamin D3 1500 MG-400 Units Tab PO SCH (08:03)
[2017-11-06] MEDS: Lisinopril 20 MG Tab PO SCH (08:03)
[2017-11-06] MEDS: Metoprolol Tartrate 25 MG Tab PO SCH (08:03)
[2017-11-06] MEDS: Bacitracin Oint 28.35 GM Tube TOP SCH (08:03)
[2017-11-06] MEDS: CHECK SCOPOLAMINE PATCH DAILY SCH (08:04)
[2017-11-06 11:30] VITALS: BP 134/78
--- NOTE | 2017-11-06 13:21 | PCM.DCSUM1 ---
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 She underwent a right mastectomy with sentinel node biopsy which was negative. No invasive tumor was found in the mastectomy specimen. She come in to the ER last week end with increasing pain and redness of her mastectomy site. She was started on antibiotics. An ultrasound showed a fluid collection which was aspirated and returned consistent with a seroma. Gram stain showe WBC's with grm + cocci. Cultures have been negative. Her erythema has now resolved and we plan to send her home on oral Bactrim DS in good condition. Brief History: See above narrative. - Discharge Data Discharge Date: 11/06/17 Discharge Disposition: Home, Self-Care 01 Condition: Good - Discharge Diagnosis/Problem(s) (1) Cellulitis of chest wall SNOMED Code(s): 90328289 ICD Code: L03.313 - CELLULITIS OF CHEST WALL Status: Acute Current Visit : Yes - Patient Summary/Data Operative Procedure(s) Performed: None. Did debride her incision a little laterally. Hospital Course: See above narrative. - Patient Instructions Diet: Usual Diet as Tolerated Activity: No Lifting Over 10 Pounds Showering/Bathing: May Shower Notify Provider of: Fever, Increased Pain, Swelling and Redness, Drainage, Nausea and/or Vomiting - Discharge Plan Prescriptions/Med Rec: Sulfamethoxazole/Trimethoprim [Bactrim Ds Tablet] 1 each PO BID #20 tablet Home Medications: Home Meds Lisinopril 20 mg PO DAILY 10/14/16 [History] Metoprolol Tartrate 25 mg PO DAILY 10/14/16 [History] Calcium Carbonate/Vitamin D3 [Calcium 600 + Vit D 200] 1 tab PO DAILY 10/15/17 [ History] Flaxseed Oil [Flax Oil] 1,000 mg PO DAILY 10/15/17 [History] Multivitamin [Multivitamins] 1 cap PO DAILY 10/15/17 [History] Bacova-3S/DHA/Epa/Fish Oil/D3 [Bacova-3 + D Softgel] 1 cap PO DAILY 10/15/17 [ History] Vit A/Beta-Carot/D2/E/Selenium [Vitamins A-D-E] 1 tab PO DAILY 10/15/17 [History ] Hydrocodone/Acetaminophen [Hydrocodon-Acetaminophen 5-325] 1 - 2 each PO Q4H PRN #30 tablet 10/19/17 [Rx] Bacitracin [Bacitracin Oint] 1 gm TOP DAILY tube 11/06/17 [Rx] Docusate Sodium [Colace] 100 mg PO BID cap 11/06/17 [Rx] Lisinopril [Prinivil] 20 mg PO DAILY tablet 11/06/17 [Rx] Metoprolol Tartrate [Lopressor] 25 mg PO DAILY tablet 11/06/17 [Rx] Sulfamethoxazole/Trimethoprim [Bactrim Ds Tablet] 1 each PO BID #20 tablet 11/06 [Rx] Referrals: Bo Peters MD [Physician] - 11/08/17 1:45 pm (Saturday ) Eben Yanez MD [Physician] - (7-14d) - Discharge Summary/Plan Comment DC Time >30 min.: Yes - Patient Data Vitals - Most Recent: Last Vital Signs Temp 97.6 F 11/06/17 11:00 Pulse 72 11/06/17 11:00 Resp 18 11/06/17 11:00 BP 134/78 11/06/17 11:00 Pulse Ox 98 11/06/17 11:00 Weight - Most Recent: 211 lb 3.2 oz I&O - Last 24 hours: Intake & Output 11/05/17 11/06/17 11/06/17 22:59 06:59 14:59 Intake Total 200 650 Output Total 1825 Balance 200 -1175 YANE Results - Last 24 hrs: Microbiology 11/04/17 15:04 Gram Stain - Final Thoracentesis Fluid - Right Body Fluid Culture - Preliminary NO GROWTH AFTER 1 DAY Med Orders - Current: Current Medications Hydrocodone Bitart/Acetaminophen ([place] 325-5 Mg) 1 - 2 tab PO Q4H PRN PRN Reason: Pain Last Admin: 11/05/17 04:02 Dose: 2 tab Bacitracin (Bacitracin Oint) 1 gm TOP DAILY NATALI Last Admin: 11/06/17 08:03 Dose: Not Given Calcium Carbonate (Caltrate 600+D 1500 Mg-400 Units) 1 tab PO DAILY NATALI Last Admin: 11/06/17 08:03 Dose: 1 tab Diphenhydramine HCl (Benadryl) 25 - 50 mg IV Q4H PRN PRN Reason: ITCHING Diphenhydramine HCl (Benadryl) 25 - 50 mg PO Q4H PRN PRN Reason: ITCHING Docusate Sodium (Colace) 100 mg PO BID [facility] Last Admin: 11/06/17 08:03 Dose: 100 mg Fentanyl (Sublimaze) 10 - 30 mcg IVPUSH Q1H PRN PRN Reason: Pain (severe 7-10) Piperacillin/Tazobactam/ (Dextrose 4.5 gm/ Premix) 100 mls @ 200 mls/hr IV Q6H [facility] Last Admin: 11/06/17 09:16 Dose: 200 mls/hr Lisinopril (Prinivil) 20 mg PO DAILY [facility] Last Admin: 11/06/17 08:03 Dose: 20 mg Metoprolol Tartrate (Lopressor) 25 mg PO DAILY [facility] Last Admin: 11/06/17 08:03 Dose: 25 mg Morphine Sulfate (Morphine) 1 - 3 mg IVPUSH Q1H PRN PRN Reason: Pain Nicotine (Habitrol) 14 mg TRDERM Q24H PRN PRN Reason: NICOTINE Check Scopolamine (Patch Daily) 1 each .XX DAILY [facility] Last Admin: 11/06/17 08:04 Dose: Not Given Ondansetron HCl (Zofran) 4 mg IVPUSH Q8H PRN PRN Reason: NAUSEA Promethazine HCl (Phenergan) 12.5 - 25 mg IV Q8H PRN PRN Reason: NAUSEA Scopolamine (Transderm-Scop) 1.5 mg TOP Q72H PRN PRN Reason: NAUSEA Sodium Chloride (Saline Flush) 10 ml FLUSH ASDIRECTED PRN PRN Reason: Keep Vein Open Last Admin: 11/06/17 04:28 Dose: 10 ml Discontinued Medications Bacitracin (Bacitracin Oint) 1 gm TOP TID [facility] Piperacillin Sod/Tazobactam (Sod 4.5 gm/ Sodium Chloride) 100 mls @ 200 mls/hr IV Q6H [facility] Last Admin: 11/03/17 03:53 Dose: 200 mls/hr Sodium Chloride (Normal Saline) 1,000 mls @ 125 mls/hr IV ASDIRECTED [facility] Last Admin: 11/03/17 02:03 Dose: 125 mls/hr *Q Meaningful Use (DIS) - VTE *Q VTE Criteria *Q: - Stroke *Q Stroke Criteria *Q: - AMI *Q AMI Criteria *Q:
== END 2017-11-06 14:08 | disposition home or self-care (01) | DRG 863 ==
LOC: JP.ED 19:50 → JP.MS 22:01
PROVIDERS: ADMIT Surgery; ATTEND Surgery
PROC: 0WB83ZX Excision of Chest Wall, Percutaneous Approach, Diagnostic (ICD-10-PCS; principal; 2017-11-04)
DX: T81.4XXA Infection following a procedure, initial encounter (principal); L76.34 Postprocedural seroma of skin and subcutaneous tissue following other procedure; L03.313 Cellulitis of chest wall; I10 Essential (primary) hypertension; Z85.3 Personal history of malignant neoplasm of breast; Z90.11 Acquired absence of right breast and nipple; M19.90 Unspecified osteoarthritis, unspecified site; H54.7 Unspecified visual loss; Z88.2 Allergy status to sulfonamides; Z96.649 Presence of unspecified artificial hip joint
CPT/HCPCS: 10022; 36415; 76642-26-RT; 76642-RT; 80048; 80053; 83605; 85025; 85027; 86140; 87040; 87070; 87077; 87205; 99284-25; A9270-GY; J2543; J7030; J7040; J7050

== ENCOUNTER 2025-03-10 21:13 | Emergency (ER) | payer MEDICAID, MEDICARE ==
[2025-03-10 21:25] VITALS: BP 100/59; PULSE 99
[2025-03-10 21:25] LABS: BASOPHILS ABSOLUTE AUTO 0.03 K/uL (0.00-0.10); BASOPHILS PERCENT AUTO 0.5 % (0.1-1.3); EOSINOPHILS ABSOLUTE AUTO 0.11 K/uL (0.00-0.40); EOSINOPHILS PERCENT AUTO 1.7 % (0.0-5.4); IMMATURE GRAN ABSOLUTE AUTO 0.04 K/uL (0.00-0.23); IMMATURE GRAN PERCENT AUTO 0.6 % (0.0-0.7); LYMPHOCYTES ABSOLUTE AUTO 2.33 K/uL (0.8-3.3); LYMPHOCYTES PERCENT AUTO 36.5 % (11.4-47.7); MONOCYTES ABSOLUTE AUTO 0.39 K/uL (0.20-0.90); MONOCYTES PERCENT AUTO 6.1 % (3.3-12.6); NEUTROPHILS ABSOLUTE AUTO 3.48 K/uL (1.0-7.6); NEUTROPHILS PERCENT AUTO 54.6 % (40.0-78.1); PLATELET COUNT,PLT 316 K/uL (130-375); RED BLOOD CELL COUNT 3.37 M/uL (3.77-5.24); WHITE BLOOD CELL COUNT,WBC 6.4 K/uL (3.2-11.0)
[2025-03-10 21:39] LABS: BLOOD UREA NITROGEN,BUN 15 mg/dL (7-18); CARBON DIOXIDE,CO2 31 mmol/L (21-32); CHLORIDE,CL 103 mmol/L (100-108); CREATININE 0.9 mg/dL (0.6-1.0); ESTIMATED GFR 71 mL/min (>60); GLUCOSE RANDOM 161 mg/dL (74-106); POTASSIUM,K 3.7 mmol/L (3.6-5.2); SODIUM,NA 141 mmol/L (140-148)
[2025-03-10 21:41] LABS: INR 1.1
[2025-03-10] MEDS: Iopamidol 612 MG/ML 100 ML Bottle IV SCH (22:47)
[2025-03-11 01:26] LABS: BASOPHILS PERCENT AUTO 0.2 % (0.1-1.3); EOSINOPHILS PERCENT AUTO 0.2 % (0.0-5.4); IMMATURE GRAN ABSOLUTE AUTO 0.05 K/uL (0.00-0.23); IMMATURE GRAN PERCENT AUTO 0.6 % (0.0-0.7); LYMPHOCYTES ABSOLUTE AUTO 1.11 K/uL (0.8-3.3); LYMPHOCYTES PERCENT AUTO 12.7 % (11.4-47.7); MONOCYTES ABSOLUTE AUTO 0.33 K/uL (0.20-0.90); MONOCYTES PERCENT AUTO 3.8 % (3.3-12.6); NEUTROPHILS ABSOLUTE AUTO 7.22 K/uL (1.0-7.6); NEUTROPHILS PERCENT AUTO 82.5 % (40.0-78.1); PLATELET COUNT,PLT 267 K/uL (130-375); RED BLOOD CELL COUNT 2.98 M/uL (3.77-5.24); WHITE BLOOD CELL COUNT,WBC 8.8 K/uL (3.2-11.0)
[2025-03-11 01:28] LABS: BASOPHILS ABSOLUTE AUTO 0.02 K/uL (0.00-0.10); EOSINOPHILS ABSOLUTE AUTO 0.02 K/uL (0.00-0.40)
[2025-03-11] MEDS: metroNIDAZOLE/Normal Saline 500 MG in Premix Bag 1 BAG IV ONE (02:11)
== END 2025-03-11 04:54 | disposition other institution (70) ==
LOC: JP.ED 21:13
DX: N99.820 Postprocedural hemorrhage of a genitourinary system organ or structure following a genitourinary system procedure (principal); I10 Essential (primary) hypertension; E66.9 Obesity, unspecified; Z88.2 Allergy status to sulfonamides; Z79.899 Other long term (current) drug therapy
CPT/HCPCS: 36415; 74177; 80048; 85025; 85610; 86850; 86900; 86901; 96361; 96365; 96367; 99284; 99285; J0690; J1836; J7030; Q9967